=== PATIENT | male | born 1985 | race Hispanic/Latino ===

== ENCOUNTER 2021-04-18 00:09 | Inpatient (IN) | payer OTHER, SELFPAY ==
[~2021-04-18] VITALS: Ht 167.6 cm; Wt 105.4 kg
[2021-04-18] MEDS ORDERED: 0.9%NACL 1000ML 1,000 ML IV ONE (00:30)
[2021-04-18 00:39] LABS: ABG BASE EXCESS -4.7 mmol/L (-2.0-3.0); ABG HCO3 17.5 mmol/L (21.0-28.0); ABG OXYGEN SATURATION 94.4 % (95.0-99.0); ABG PCO2 26 mmHg (35-48)
[2021-04-18 00:46] LABS: BASOPHILS % (AUTO) 0.1 % (0.0-5.0); HEMATOCRIT 43.8 % (42-54); LYMPHOCYTES % (AUTO) 8.7 % (21.0-51.0); MEAN CORPUSCULAR HEMOGLOBIN 28.8 pg (27.0-33.0); MEAN CORPUSCULAR HGB CONC 34.5 g/dL (32.0-36.0); MEAN CORPUSCULAR VOLUME 83.4 fL (79-99); MONOCYTES % (AUTO) 4.5 % (3.0-13.0); PLATELET COUNT (AUTO) 250 K/uL (130-400); RED BLOOD CELL COUNT(AUTO) 5.25 MIL/uL (4.50-6.20); RED CELL DISTRIBUTION WIDTH 11.9 % (11.0-15.5); WHITE BLOOD COUNT (AUTO) 7.6 K/uL (4.8-10.8)
[2021-04-18 00:51] LABS: CREATININE 0.7 mg/dL (0.5-1.5); POTASSIUM 3.2 mmol/L (3.5-5.1)
[2021-04-18 00:56] LABS: ALBUMIN 2.9 g/dL (3.5-5.0); BILIRUBIN,TOTAL 0.5 mg/dL (0.2-1.0); TOTAL PROTEIN, SERUM 7.6 g/dL (6.0-8.3)
[2021-04-18] MEDS ORDERED: LORAZEPAM 2 MG/ML 1 ML VIAL ONE (01:48)
[2021-04-18] MEDS ORDERED: ONDANSETRON 4MG INJ ONE (01:52)
[2021-04-18] MEDS ORDERED: LORAZEPAM 2 MG/ML 1 ML VIAL IVP ONE (02:00)
[2021-04-18] MEDS ORDERED: DEXAMETHASONE SOD PHOSPHATE 4 MG/ML 1ML VIAL IVP ONE (02:30)
[2021-04-18] MEDS ORDERED: ENOXAPARIN SODIUM 40 MG/0.4 ML SYRINGE SQ ONE (02:30)
[2021-04-18] MEDS ORDERED: PHARMACY COMMUNICATION MISC SCH ×3 (03:00→16:00)
[2021-04-18] MEDS ORDERED: ONDANSETRON 4MG INJ IV PRN (03:00)
[2021-04-18] MEDS ORDERED: ERGOCALCIFEROL (VITAMIN D2) 50,000 UNIT CAPSULE PO ONE (03:00)
[2021-04-18] MEDS ORDERED: NITROGLYCERIN 0.4 MG SL TAB SL PRN (03:00)
[2021-04-18] MEDS ORDERED: ACETAMINOPHEN 325 MG TAB PO PRN ×2 (03:00)
[2021-04-18] MEDS ORDERED: DEXTROSE 50%-WATER 50 ML DISP.SYRIN IV PRN (03:00)
[2021-04-18] MEDS ORDERED: GLUCAGON 1MG KIT 1 MG ML IM PRN (03:00)
[2021-04-18] MEDS ORDERED: ALBUTEROL INHALER 90MCG/INH IH PRN (03:00)
[2021-04-18] MEDS: CEFTRIAXONE 1G VIAL IVP SCH (04:01)
[2021-04-18] MEDS: DEXAMETHASONE SOD PHOSPHATE 4 MG/ML 1ML VIAL IVP SCH (04:01)
[2021-04-18] MEDS: AZITHROMYCIN 500MG+NS 250ML 250 ML IV SCH (04:01)
[2021-04-18 06:19] LABS: INR 1.04 (0.85-1.15); PROTHROMBIN TIME 11.3 SEC (9.6-11.6)
[2021-04-18 06:20] LABS: PARTIAL THROMBOPLASTIN TIME 35.3 SEC (26.3-35.5)
[2021-04-18 06:29] LABS: HEMOGLOBIN A1C 10.7 % (4.0-6.0)
[2021-04-18 06:50] LABS: CRP QUANTITATIVE 200.6 mg/L (0.00-9.0)
[2021-04-18] MEDS: INSULIN HUMULIN R 100 UNIT/ML 3ML SQ SCH ×4 (08:11→22:19)
[2021-04-18] MEDS: ASCORBIC ACID 500 MG TAB PO SCH (09:00)
[2021-04-18] MEDS: FAMOTIDINE 20MG TAB PO SCH ×2 (09:00→22:18)
[2021-04-18] MEDS: ACETYLCYSTEINE 600 MG CAPSULE PO SCH ×2 (09:00→22:18)
[2021-04-18] MEDS ORDERED: ENOXAPARIN SODIUM 40 MG/0.4 ML SYRINGE SQ SCH ×2 (09:00)
[2021-04-18] MEDS: ZINC SULFATE 220 CAPSULE PO SCH (09:00)
[2021-04-18] MEDS ORDERED: DEXMEDETOMIDINE HCL 200 MCG in 0.9%NACL 50ML 50 ML IV PRN (13:00)
[2021-04-18] MEDS ORDERED: POTASSIUM CHLORIDE 10% ELIXIR 20 MEQ/15 ML UDCUP PO ONE (13:50)
[2021-04-18] MEDS ORDERED: INSULIN GLARGINE 100 UNITS/ML 10 ML VIAL SQ ONE (13:55)
[2021-04-18] MEDS: DEXMEDETOMIDINE 400MCG/NS100ML IV SCH (14:09)
[2021-04-18] MEDS ORDERED: REMDESIVIR (EUA) 520 200 MG in 0.9% NACL 250ML 250 ML IV ONE (16:00)
[2021-04-18] MEDS ORDERED: COMPOUND IV REFRIGERATED 1 EACH IVSOLN MISC PRN (16:00)
[2021-04-18] MEDS: BARICITINIB (EUA) 2 MG TABLET PO SCH (17:00)
[2021-04-18] MEDS: ENOXAPARIN SODIUM 40 MG/0.4 ML SYRINGE SQ SCH (22:19)
[2021-04-18] MEDS: INSULIN GLARGINE 100 UNITS/ML 10 ML VIAL SQ SCH (22:19)
[2021-04-19] MEDS ORDERED: 0.9%NACL 100ML 100 ML ONE (00:45)
[2021-04-19] MEDS ORDERED: DEXMEDETOMIDINE HCL 200 MCG/2 ML VIAL IV ONE (00:45)
[2021-04-19] MEDS: DEXAMETHASONE SOD PHOSPHATE 4 MG/ML 1ML VIAL IVP SCH (03:20)
[2021-04-19] MEDS: AZITHROMYCIN 500MG+NS 250ML 250 ML IV SCH (03:20)
[2021-04-19] MEDS: CEFTRIAXONE 1G VIAL IVP SCH (03:20)
[2021-04-19 05:18] LABS: BASOPHILS % (AUTO) 0.2 % (0.0-5.0); HEMATOCRIT 39.2 % (42-54); MEAN CORPUSCULAR HEMOGLOBIN 29.2 pg (27.0-33.0); MEAN CORPUSCULAR HGB CONC 34.7 g/dL (32.0-36.0); MEAN CORPUSCULAR VOLUME 84.3 fL (79-99); MONOCYTES % (AUTO) 3.8 % (3.0-13.0); NEUTROPHILS % (AUTO) 84.3 % (40.0-77.0); PLATELET COUNT (AUTO) 312 K/uL (130-400); RED BLOOD CELL COUNT(AUTO) 4.65 MIL/uL (4.50-6.20); RED CELL DISTRIBUTION WIDTH 12.2 % (11.0-15.5)
[2021-04-19 05:42] LABS: ALBUMIN 2.4 g/dL (3.5-5.0); BILIRUBIN,TOTAL 0.4 mg/dL (0.2-1.0); CREATININE 0.5 mg/dL (0.5-1.5); CRP QUANTITATIVE 159.9 mg/L (0.00-9.0); POTASSIUM 3.6 mmol/L (3.5-5.1); TOTAL PROTEIN, SERUM 6.9 g/dL (6.0-8.3)
[2021-04-19] MEDS: REMDESIVIR LABS MISC SCH (06:00)
[2021-04-19] MEDS: ASCORBIC ACID 500 MG TAB PO SCH (08:57)
[2021-04-19] MEDS: ZINC SULFATE 220 CAPSULE PO SCH (08:57)
[2021-04-19] MEDS: BARICITINIB (EUA) 2 MG TABLET PO SCH (08:57)
[2021-04-19] MEDS: FAMOTIDINE 20MG TAB PO SCH ×2 (08:57→21:59)
[2021-04-19] MEDS: ACETYLCYSTEINE 600 MG CAPSULE PO SCH ×2 (08:57→21:59)
[2021-04-19] MEDS: ENOXAPARIN SODIUM 40 MG/0.4 ML SYRINGE SQ SCH ×2 (08:58→21:59)
[2021-04-19] MEDS: INSULIN GLARGINE 100 UNITS/ML 10 ML VIAL SQ SCH ×2 (08:59→21:59)
[2021-04-19] MEDS: INSULIN HUMULIN R 100 UNIT/ML 3ML SQ SCH ×4 (08:59→21:59)
[2021-04-19 13:35] LABS: INR 1.02 (0.85-1.15); PROTHROMBIN TIME 11.1 SEC (9.6-11.6)
[2021-04-19 13:36] LABS: PARTIAL THROMBOPLASTIN TIME 29.9 SEC (26.3-35.5)
[2021-04-19] MEDS: REMDESIVIR (EUA) 520 100 MG in 0.9% NACL 250ML 250 ML IV SCH (16:42)
[2021-04-19] MEDS: SOLU-MEDROL 125MG VIAL IVP SCH ×2 (16:56→22:38)
[2021-04-19] MEDS ORDERED: FOLIC ACID 5 MG/ML VIAL IV ONE (19:00)
[2021-04-19] MEDS ORDERED: THIAMINE HCL 100 MG/ML 2ML VIAL IVP SCH (19:00)
[2021-04-20] VITALS (41 sets, daily range): BP systolic 95–131; BP diastolic 54–89
[2021-04-20] MEDS: AZITHROMYCIN 500MG+NS 250ML 250 ML IV SCH (03:00)
[2021-04-20] MEDS: CEFTRIAXONE 1G VIAL IVP SCH (03:00)
[2021-04-20 04:19] LABS: BASOPHILS % (AUTO) 0.1 % (0.0-5.0); HEMATOCRIT 42.2 % (42-54); MEAN CORPUSCULAR HEMOGLOBIN 28.1 pg (27.0-33.0); MEAN CORPUSCULAR HGB CONC 32.9 g/dL (32.0-36.0); MEAN CORPUSCULAR VOLUME 85.3 fL (79-99); MONOCYTES % (AUTO) 4.7 % (3.0-13.0); NEUTROPHILS % (AUTO) 81.6 % (40.0-77.0); PLATELET COUNT (AUTO) 335 K/uL (130-400); RED BLOOD CELL COUNT(AUTO) 4.95 MIL/uL (4.50-6.20); RED CELL DISTRIBUTION WIDTH 12.2 % (11.0-15.5); WHITE BLOOD COUNT (AUTO) 7.9 K/uL (4.8-10.8)
[2021-04-20 05:19] LABS: ALBUMIN 2.4 g/dL (3.5-5.0); BILIRUBIN,TOTAL 0.3 mg/dL (0.2-1.0); CREATININE 0.5 mg/dL (0.5-1.5); CRP QUANTITATIVE 80.8 mg/L (0.00-9.0); POTASSIUM 3.4 mmol/L (3.5-5.1); TOTAL PROTEIN, SERUM 6.7 g/dL (6.0-8.3)
[2021-04-20] MEDS: SOLU-MEDROL 125MG VIAL IVP SCH ×4 (06:00→20:50)
[2021-04-20] MEDS: REMDESIVIR LABS MISC SCH (06:00)
[2021-04-20] MEDS: INSULIN HUMULIN R 100 UNIT/ML 3ML SQ SCH ×5 (06:25→20:50)
[2021-04-20] MEDS: INSULIN GLARGINE 100 UNITS/ML 10 ML VIAL SQ SCH ×2 (06:39→20:48)
[2021-04-20] MEDS: DEXMEDETOMIDINE 400MCG/NS100ML IV SCH ×2 (06:40→16:36)
[2021-04-20 07:24] LABS: AMPHET/METH SCREEN,URINE NEGATIVE (NEGATIVE); BARBITURATE SCREEN, URINE NEGATIVE (NEGATIVE); BENZODIAZEPINES SCREEN,URINE NEGATIVE (NEGATIVE); CANNABINOID SCREEN,URINE NEGATIVE (NEGATIVE); COCAINE SCREEN,URINE NEGATIVE (NEGATIVE); OPIATE SCREEN,URINE NEGATIVE (NEGATIVE); PHENCYCLIDINE SCREEN,URINE NEGATIVE (NEGATIVE)
[2021-04-20] MEDS: THIAMINE HCL 100 MG/ML 2ML VIAL IVP SCH (07:55)
[2021-04-20] MEDS: ZINC SULFATE 220 CAPSULE PO SCH (07:55)
[2021-04-20] MEDS: FAMOTIDINE 20MG TAB PO SCH ×2 (07:55→20:47)
[2021-04-20] MEDS: ACETYLCYSTEINE 600 MG CAPSULE PO SCH ×2 (07:55→20:47)
[2021-04-20] MEDS: ASCORBIC ACID 500 MG TAB PO SCH (07:55)
[2021-04-20] MEDS: ENOXAPARIN SODIUM 40 MG/0.4 ML SYRINGE SQ SCH ×2 (07:56→20:50)
[2021-04-20] MEDS: FOLIC ACID 5 MG/ML VIAL IV SCH (08:38)
[2021-04-20] MEDS: BARICITINIB (EUA) 2 MG TABLET PO SCH (10:55)
[2021-04-20] MEDS ORDERED: ASPIRIN 81 MG EC TAB PO SCH (11:30)
[2021-04-20] MEDS: REMDESIVIR (EUA) 520 100 MG in 0.9% NACL 250ML 250 ML IV SCH (14:36)
[2021-04-20] MEDS: LACTULOSE 20 GM/30 ML UDCUP PO SCH ×2 (18:43→23:41)
[2021-04-21] VITALS (43 sets, daily range): BP systolic 102–156; BP diastolic 60–99
[2021-04-21] MEDS: CEFTRIAXONE 1G VIAL IVP SCH (03:45)
[2021-04-21] MEDS: AZITHROMYCIN 500MG+NS 250ML 250 ML IV SCH (03:45)
[2021-04-21] MEDS: SOLU-MEDROL 125MG VIAL IVP SCH ×2 (03:45→08:18)
[2021-04-21] MEDS: DEXMEDETOMIDINE 400MCG/NS100ML IV SCH ×3 (04:00→20:26)
[2021-04-21 04:52] LABS: BASOPHILS % (AUTO) 0.1 % (0.0-5.0); HEMATOCRIT 40.1 % (42-54); LYMPHOCYTES % (AUTO) 10.6 % (21.0-51.0); MEAN CORPUSCULAR HEMOGLOBIN 28.1 pg (27.0-33.0); MEAN CORPUSCULAR HGB CONC 33.2 g/dL (32.0-36.0); MEAN CORPUSCULAR VOLUME 84.8 fL (79-99); MONOCYTES % (AUTO) 5.1 % (3.0-13.0); NEUTROPHILS % (AUTO) 83.4 % (40.0-77.0); PLATELET COUNT (AUTO) 364 K/uL (130-400); RED BLOOD CELL COUNT(AUTO) 4.73 MIL/uL (4.50-6.20); RED CELL DISTRIBUTION WIDTH 11.9 % (11.0-15.5); WHITE BLOOD COUNT (AUTO) 9.4 K/uL (4.8-10.8)
[2021-04-21 05:00] LABS: ALBUMIN 2.4 g/dL (3.5-5.0); BILIRUBIN,TOTAL 0.4 mg/dL (0.2-1.0); CREATININE 0.6 mg/dL (0.5-1.5); CRP QUANTITATIVE 35.8 mg/L (0.00-9.0); TOTAL PROTEIN, SERUM 6.4 g/dL (6.0-8.3)
[2021-04-21 06:00] LABS: POTASSIUM 2.9 mmol/L (3.5-5.1)
[2021-04-21] MEDS: REMDESIVIR LABS MISC SCH (06:00)
[2021-04-21] MEDS: LACTULOSE 20 GM/30 ML UDCUP PO SCH ×2 (06:30→11:22)
[2021-04-21] MEDS: INSULIN HUMULIN R 100 UNIT/ML 3ML SQ SCH ×7 (06:39→20:27)
[2021-04-21] MEDS: INSULIN GLARGINE 100 UNITS/ML 10 ML VIAL SQ SCH ×2 (06:40→20:26)
[2021-04-21] MEDS: FAMOTIDINE 20MG TAB PO SCH ×2 (08:18→20:14)
[2021-04-21] MEDS: ZINC SULFATE 220 CAPSULE PO SCH (08:18)
[2021-04-21] MEDS: THIAMINE HCL 100 MG/ML 2ML VIAL IVP SCH (08:18)
[2021-04-21] MEDS: BARICITINIB (EUA) 2 MG TABLET PO SCH (08:18)
[2021-04-21] MEDS: ASCORBIC ACID 500 MG TAB PO SCH (08:18)
[2021-04-21] MEDS: ASPIRIN 81 MG EC TAB PO SCH (08:18)
[2021-04-21] MEDS: ENOXAPARIN SODIUM 40 MG/0.4 ML SYRINGE SQ SCH ×2 (08:18→20:14)
[2021-04-21] MEDS: ACETYLCYSTEINE 600 MG CAPSULE PO SCH ×2 (08:18→20:14)
[2021-04-21] MEDS: FOLIC ACID 5 MG/ML VIAL IV SCH (09:01)
[2021-04-21] MEDS ORDERED: POTASSIUM CHLORIDE 20MEQ/100ML 100 ML IV PRN (10:00)
[2021-04-21] MEDS ORDERED: POTASSIUM CHLORIDE 10% ELIXIR 20 MEQ/15 ML UDCUP PO PRN (10:00)
[2021-04-21] MEDS: KCL 20 MEQ ERTAB PO PRN ×3 (10:34→15:29)
[2021-04-21] MEDS: DEXAMETHASONE SOD PHOSPHATE 4 MG/ML 1ML VIAL IV SCH (13:53)
[2021-04-21] MEDS ORDERED: LACTULOSE 20 GM/30 ML UDCUP PO PRN (14:00)
[2021-04-21] MEDS: REMDESIVIR (EUA) 520 100 MG in 0.9% NACL 250ML 250 ML IV SCH (15:02)
[2021-04-22] VITALS (43 sets, daily range): BP systolic 94–138; BP diastolic 49–83
[2021-04-22] MEDS: AZITHROMYCIN 500MG+NS 250ML 250 ML IV SCH (03:13)
[2021-04-22] MEDS: CEFTRIAXONE 1G VIAL IVP SCH (03:13)
[2021-04-22] MEDS: DEXMEDETOMIDINE 400MCG/NS100ML IV SCH ×3 (03:30→21:18)
[2021-04-22 04:14] LABS: MEAN CORPUSCULAR HGB CONC 32.1 g/dL (32.0-36.0); MEAN CORPUSCULAR VOLUME 87.1 fL (79-99); RED BLOOD CELL COUNT(AUTO) 4.82 MIL/uL (4.50-6.20); RED CELL DISTRIBUTION WIDTH 11.9 % (11.0-15.5); WHITE BLOOD COUNT (AUTO) 10.4 K/uL (4.8-10.8)
[2021-04-22 04:26] LABS: CREATININE 0.6 mg/dL (0.5-1.5); POTASSIUM 3.2 mmol/L (3.5-5.1)
[2021-04-22] MEDS: KCL 20 MEQ ERTAB PO PRN ×3 (05:49→10:43)
[2021-04-22] MEDS: REMDESIVIR LABS MISC SCH (06:00)
[2021-04-22] MEDS: INSULIN GLARGINE 100 UNITS/ML 10 ML VIAL SQ SCH ×2 (06:51→20:59)
[2021-04-22] MEDS: INSULIN HUMULIN R 100 UNIT/ML 3ML SQ SCH ×8 (06:51→20:58)
[2021-04-22] MEDS: BARICITINIB (EUA) 2 MG TABLET PO SCH (08:34)
[2021-04-22] MEDS: FAMOTIDINE 20MG TAB PO SCH ×2 (08:34→20:55)
[2021-04-22] MEDS: THIAMINE HCL 100 MG/ML 2ML VIAL IVP SCH (08:34)
[2021-04-22] MEDS: ZINC SULFATE 220 CAPSULE PO SCH (08:34)
[2021-04-22] MEDS: ACETYLCYSTEINE 600 MG CAPSULE PO SCH ×2 (08:34→20:55)
[2021-04-22] MEDS: ASCORBIC ACID 500 MG TAB PO SCH (08:34)
[2021-04-22] MEDS: FOLIC ACID 5 MG/ML VIAL IV SCH (08:34)
[2021-04-22] MEDS: ENOXAPARIN SODIUM 40 MG/0.4 ML SYRINGE SQ SCH ×2 (08:35→20:56)
[2021-04-22] MEDS: ASPIRIN 81 MG EC TAB PO SCH (08:35)
[2021-04-22] MEDS: DEXAMETHASONE SOD PHOSPHATE 4 MG/ML 1ML VIAL IV SCH (12:15)
[2021-04-22] MEDS: REMDESIVIR (EUA) 520 100 MG in 0.9% NACL 250ML 250 ML IV SCH (15:31)
[2021-04-23] VITALS (28 sets, daily range): BP systolic 95–134; BP diastolic 49–101
[2021-04-23] MEDS: AZITHROMYCIN 500MG+NS 250ML 250 ML IV SCH (03:17)
[2021-04-23] MEDS: CEFTRIAXONE 1G VIAL IVP SCH (03:18)
[2021-04-23 03:50] LABS: HEMATOCRIT 40.1 % (42-54); MEAN CORPUSCULAR HEMOGLOBIN 27.8 pg (27.0-33.0); MEAN CORPUSCULAR HGB CONC 32.4 g/dL (32.0-36.0); MEAN CORPUSCULAR VOLUME 85.9 fL (79-99); RED BLOOD CELL COUNT(AUTO) 4.67 MIL/uL (4.50-6.20); RED CELL DISTRIBUTION WIDTH 11.8 % (11.0-15.5); WHITE BLOOD COUNT (AUTO) 11.5 K/uL (4.8-10.8)
[2021-04-23 03:58] LABS: CREATININE 0.8 mg/dL (0.5-1.5); POTASSIUM 3.2 mmol/L (3.5-5.1)
[2021-04-23] MEDS: INSULIN GLARGINE 100 UNITS/ML 10 ML VIAL SQ SCH (06:33)
[2021-04-23] MEDS: INSULIN HUMULIN R 100 UNIT/ML 3ML SQ SCH ×8 (06:34→20:34)
[2021-04-23] MEDS: ZINC SULFATE 220 CAPSULE PO SCH (08:40)
[2021-04-23] MEDS: ASCORBIC ACID 500 MG TAB PO SCH (08:40)
[2021-04-23] MEDS: FAMOTIDINE 20MG TAB PO SCH ×2 (08:40→20:29)
[2021-04-23] MEDS: ASPIRIN 81 MG EC TAB PO SCH (08:40)
[2021-04-23] MEDS: BARICITINIB (EUA) 2 MG TABLET PO SCH (08:40)
[2021-04-23] MEDS: ENOXAPARIN SODIUM 40 MG/0.4 ML SYRINGE SQ SCH ×2 (08:40→20:31)
[2021-04-23] MEDS: ACETYLCYSTEINE 600 MG CAPSULE PO SCH ×2 (08:40→20:29)
[2021-04-23] MEDS: KCL 20 MEQ ERTAB PO PRN ×3 (08:40→16:25)
[2021-04-23] MEDS: THIAMINE HCL 100 MG/ML 2ML VIAL IVP SCH (08:42)
[2021-04-23] MEDS: DEXAMETHASONE SOD PHOSPHATE 4 MG/ML 1ML VIAL IV SCH (12:26)
[2021-04-23] MEDS: FOLIC ACID 5 MG/ML VIAL IV SCH (12:52)
[2021-04-24] VITALS (28 sets, daily range): BP systolic 98–130; BP diastolic 45–83
[2021-04-24] MEDS: AZITHROMYCIN 500MG+NS 250ML 250 ML IV SCH (03:07)
[2021-04-24] MEDS: CEFTRIAXONE 1G VIAL IVP SCH (03:07)
[2021-04-24 04:17] LABS: HEMATOCRIT 38.9 % (42-54); MEAN CORPUSCULAR HEMOGLOBIN 28.4 pg (27.0-33.0); MEAN CORPUSCULAR HGB CONC 32.6 g/dL (32.0-36.0); RED BLOOD CELL COUNT(AUTO) 4.47 MIL/uL (4.50-6.20); RED CELL DISTRIBUTION WIDTH 11.7 % (11.0-15.5); WHITE BLOOD COUNT (AUTO) 9.2 K/uL (4.8-10.8)
[2021-04-24 04:22] LABS: CREATININE 0.6 mg/dL (0.5-1.5); POTASSIUM 3.3 mmol/L (3.5-5.1)
[2021-04-24] MEDS: INSULIN HUMULIN R 100 UNIT/ML 3ML SQ SCH ×6 (06:20→21:00)
[2021-04-24] MEDS: ENOXAPARIN SODIUM 40 MG/0.4 ML SYRINGE SQ SCH ×2 (08:26→20:31)
[2021-04-24] MEDS: THIAMINE HCL 100 MG/ML 2ML VIAL IVP SCH (08:26)
[2021-04-24] MEDS: ASCORBIC ACID 500 MG TAB PO SCH (08:26)
[2021-04-24] MEDS: FAMOTIDINE 20MG TAB PO SCH ×2 (08:27→20:31)
[2021-04-24] MEDS: ASPIRIN 81 MG EC TAB PO SCH (08:27)
[2021-04-24] MEDS: BARICITINIB (EUA) 2 MG TABLET PO SCH (08:27)
[2021-04-24] MEDS: ZINC SULFATE 220 CAPSULE PO SCH (08:27)
[2021-04-24] MEDS: FOLIC ACID 5 MG/ML VIAL IV SCH (08:28)
[2021-04-24] MEDS: INSULIN GLARGINE 100 UNITS/ML 10 ML VIAL SQ SCH (08:29)
[2021-04-24 09:53] LABS: CRP QUANTITATIVE 16.7 mg/L (0.00-9.0)
[2021-04-24] MEDS: DEXAMETHASONE SOD PHOSPHATE 4 MG/ML 1ML VIAL IV SCH (13:45)
[2021-04-25 03:22] VITALS: BP 104/67
[2021-04-25 04:40] LABS: HEMATOCRIT 40.9 % (42-54); MEAN CORPUSCULAR HEMOGLOBIN 28.7 pg (27.0-33.0); MEAN CORPUSCULAR HGB CONC 33.5 g/dL (32.0-36.0); MEAN CORPUSCULAR VOLUME 85.6 fL (79-99); RED BLOOD CELL COUNT(AUTO) 4.78 MIL/uL (4.50-6.20); RED CELL DISTRIBUTION WIDTH 11.6 % (11.0-15.5); WHITE BLOOD COUNT (AUTO) 9.7 K/uL (4.8-10.8)
[2021-04-25 04:48] LABS: CREATININE 0.7 mg/dL (0.5-1.5); POTASSIUM 3.6 mmol/L (3.5-5.1)
[2021-04-25] MEDS: CEFTRIAXONE 1G VIAL IVP SCH (05:42)
[2021-04-25] MEDS: AZITHROMYCIN 500MG+NS 250ML 250 ML IV SCH (05:42)
[2021-04-25 07:00] VITALS: BP 115/75
[2021-04-25] MEDS: INSULIN HUMULIN R 100 UNIT/ML 3ML SQ SCH ×8 (07:20→20:21)
[2021-04-25 08:39] LABS: CRP QUANTITATIVE 5.5 mg/L (0.00-9.0)
[2021-04-25] MEDS: ASCORBIC ACID 500 MG TAB PO SCH (09:34)
[2021-04-25] MEDS: FAMOTIDINE 20MG TAB PO SCH ×2 (09:34→20:19)
[2021-04-25] MEDS: ZINC SULFATE 220 CAPSULE PO SCH (09:34)
[2021-04-25] MEDS: ASPIRIN 81 MG EC TAB PO SCH (09:34)
[2021-04-25] MEDS: THIAMINE HCL 100 MG/ML 2ML VIAL IVP SCH (09:35)
[2021-04-25] MEDS: BARICITINIB (EUA) 2 MG TABLET PO SCH (09:35)
[2021-04-25] MEDS: FOLIC ACID 5 MG/ML VIAL IV SCH (09:35)
[2021-04-25] MEDS: ENOXAPARIN SODIUM 40 MG/0.4 ML SYRINGE SQ SCH ×2 (09:36→20:19)
[2021-04-25] MEDS: INSULIN GLARGINE 100 UNITS/ML 10 ML VIAL SQ SCH (09:37)
[2021-04-25 11:00] VITALS: BP 99/62
[2021-04-25 16:00] VITALS: BP 108/62
[2021-04-25] MEDS: DEXAMETHASONE SOD PHOSPHATE 4 MG/ML 1ML VIAL IV SCH (17:56)
[2021-04-25 19:59] VITALS: BP 100/65
[2021-04-25 23:54] VITALS: BP 97/67
[2021-04-26] VITALS (7 sets, daily range): BP systolic 94–105; BP diastolic 50–69
[2021-04-26 03:50] LABS: BASOPHILS % (AUTO) 0.3 % (0.0-5.0); EOSINOPHILS % (AUTO) 0.6 % (0.0-8.0); HEMATOCRIT 40.5 % (42-54); LYMPHOCYTES % (AUTO) 11.7 % (21.0-51.0); MEAN CORPUSCULAR HEMOGLOBIN 28.5 pg (27.0-33.0); MEAN CORPUSCULAR HGB CONC 33.1 g/dL (32.0-36.0); MEAN CORPUSCULAR VOLUME 86.2 fL (79-99); MONOCYTES % (AUTO) 5.6 % (3.0-13.0); NEUTROPHILS % (AUTO) 78.9 % (40.0-77.0); PLATELET COUNT (AUTO) 451 K/uL (130-400); RED CELL DISTRIBUTION WIDTH 11.7 % (11.0-15.5)
[2021-04-26 04:06] LABS: ALBUMIN 2.6 g/dL (3.5-5.0); BILIRUBIN,TOTAL 0.5 mg/dL (0.2-1.0); CREATININE 0.6 mg/dL (0.5-1.5); POTASSIUM 3.8 mmol/L (3.5-5.1); TOTAL PROTEIN, SERUM 5.9 g/dL (6.0-8.3)
[2021-04-26] MEDS: INSULIN HUMULIN R 100 UNIT/ML 3ML SQ SCH ×7 (07:30→20:59)
[2021-04-26] MEDS: ASPIRIN 81 MG EC TAB PO SCH (08:24)
[2021-04-26] MEDS: FAMOTIDINE 20MG TAB PO SCH ×2 (08:24→20:56)
[2021-04-26] MEDS: ZINC SULFATE 220 CAPSULE PO SCH (08:24)
[2021-04-26] MEDS: THIAMINE HCL 100 MG/ML 2ML VIAL IVP SCH (08:25)
[2021-04-26] MEDS: ENOXAPARIN SODIUM 40 MG/0.4 ML SYRINGE SQ SCH ×2 (08:25→21:07)
[2021-04-26] MEDS: ASCORBIC ACID 500 MG TAB PO SCH (08:25)
[2021-04-26] MEDS: FOLIC ACID 5 MG/ML VIAL IV SCH (08:26)
[2021-04-26] MEDS: BARICITINIB (EUA) 2 MG TABLET PO SCH (08:26)
[2021-04-26] MEDS: INSULIN GLARGINE 100 UNITS/ML 10 ML VIAL SQ SCH (08:29)
[2021-04-26] MEDS ORDERED: PHARMACY COMMUNICATION MISC SCH (08:30)
[2021-04-26] MEDS: DEXAMETHASONE SOD PHOSPHATE 4 MG/ML 1ML VIAL IV SCH (12:39)
[2021-04-27 03:10] VITALS: BP 100/56
[2021-04-27 06:52] LABS: BASOPHILS % (AUTO) 0.2 % (0.0-5.0); EOSINOPHILS % (AUTO) 0.2 % (0.0-8.0); HEMATOCRIT 41.1 % (42-54); LYMPHOCYTES % (AUTO) 12.3 % (21.0-51.0); MEAN CORPUSCULAR HGB CONC 33.3 g/dL (32.0-36.0); MEAN CORPUSCULAR VOLUME 87.1 fL (79-99); MONOCYTES % (AUTO) 6.7 % (3.0-13.0); NEUTROPHILS % (AUTO) 77.8 % (40.0-77.0); PLATELET COUNT (AUTO) 439 K/uL (130-400); RED BLOOD CELL COUNT(AUTO) 4.72 MIL/uL (4.50-6.20); RED CELL DISTRIBUTION WIDTH 11.9 % (11.0-15.5); WHITE BLOOD COUNT (AUTO) 9.7 K/uL (4.8-10.8)
[2021-04-27] MEDS: INSULIN HUMULIN R 100 UNIT/ML 3ML SQ SCH ×4 (07:30→11:49)
[2021-04-27 07:42] LABS: CARBON DIOXIDE 30 mmol/L (21-32); CHLORIDE 104 mmol/L (101-111); CREATININE 0.6 mg/dL (0.5-1.5); GLOMERULAR FILTR. RATE CALC 160 mL/min (>60); GLUCOSE,RANDOM 154 mg/dL (70-105); POTASSIUM 3.7 mmol/L (3.5-5.1); SODIUM SERUM 140 mmol/L (136-145); UREA NITROGEN, BLOOD 12 mg/dL (7-18)
[2021-04-27 08:24] LABS: CRP QUANTITATIVE < 2.00 mg/L (0.00-9.0)
[2021-04-27 08:36] VITALS: BP 110/78
[2021-04-27] MEDS ORDERED: METF-446 PO (08:41)
[2021-04-27] MEDS ORDERED: DEXA6TAB PO (08:41)
[2021-04-27] MEDS ORDERED: INSLAN SQ (08:50)
[2021-04-27] MEDS ORDERED: SYRI-1554 MC (08:50)
[2021-04-27] MEDS: FOLIC ACID 5 MG/ML VIAL IV SCH (08:53)
[2021-04-27] MEDS: ASPIRIN 81 MG EC TAB PO SCH (08:53)
[2021-04-27] MEDS: THIAMINE HCL 100 MG/ML 2ML VIAL IVP SCH (08:53)
[2021-04-27] MEDS: BARICITINIB (EUA) 2 MG TABLET PO SCH (08:53)
[2021-04-27] MEDS: ZINC SULFATE 220 CAPSULE PO SCH (08:53)
[2021-04-27] MEDS: ASCORBIC ACID 500 MG TAB PO SCH (08:54)
[2021-04-27] MEDS: ENOXAPARIN SODIUM 40 MG/0.4 ML SYRINGE SQ SCH (08:54)
[2021-04-27] MEDS: FAMOTIDINE 20MG TAB PO SCH (08:54)
[2021-04-27] MEDS: INSULIN GLARGINE 100 UNITS/ML 10 ML VIAL SQ SCH (08:56)
[2021-04-27] MEDS: DEXAMETHASONE SOD PHOSPHATE 4 MG/ML 1ML VIAL IV SCH (11:49)
[2021-04-27 12:12] VITALS: BP 111/74
== END 2021-04-27 13:28 | disposition home or self-care (01) | DRG 177 ==
LOC: EDH 00:09 → EDHIP 02:40 → 2BH 04-19 23:25 → 2AH 04-24 19:39
PROVIDERS: ADMIT Hospitalist; ATTEND Hospitalist
PROC: XW033E5 Introduction of Remdesivir Anti-infective into Peripheral Vein, Percutaneous Approach, New Technology Group 5 (ICD-10-PCS; principal; 2021-04-18)
PROC: XW0DXM6 Introduction of Baricitinib into Mouth and Pharynx, External Approach, New Technology Group 6 (ICD-10-PCS; 2021-04-18)
PROC: 5A0955A Assistance with Respiratory Ventilation, Greater than 96 Consecutive Hours, High Flow/Velocity Cannula (ICD-10-PCS; 2021-04-18)
DX: U07.1 COVID-19 (principal); A41.89 Other specified sepsis; J12.82 Pneumonia due to coronavirus disease 2019; E43 Unspecified severe protein-calorie malnutrition; J80 Acute respiratory distress syndrome; D68.69 Other thrombophilia; E87.6 Hypokalemia; E11.65 Type 2 diabetes mellitus with hyperglycemia; E66.01 Morbid (severe) obesity due to excess calories; E78.5 Hyperlipidemia, unspecified; E88.09 Other disorders of plasma-protein metabolism, not elsewhere classified; F41.9 Anxiety disorder, unspecified; F14.10 Cocaine abuse, uncomplicated; F10.10 Alcohol abuse, uncomplicated; T38.0X5A Adverse effect of glucocorticoids and synthetic analogues, initial encounter; G47.33 Obstructive sleep apnea (adult) (pediatric); I10 Essential (primary) hypertension; Z68.39 Body mass index [BMI] 39.0-39.9, adult; Z79.4 Long term (current) use of insulin; Z91.19 Patient's noncompliance with other medical treatment and regimen; Z82.49 Family history of ischemic heart disease and other diseases of the circulatory system; Z83.3 Family history of diabetes mellitus; Y92.89 Other specified places as the place of occurrence of the external cause
CPT/HCPCS: 36415; 36600; 71045; 71250; 80048; 80053; 80305; 82550; 82728; 82803; 82948; 83036; 83605; 83615; 83735; 83874; 84132; 84145; 84484; 85025; 85027; 85378; 85610; 85730; 86140; 87040; 87426; 87486; 87581; 87633; 87798; 93005; 93971; 94760; 99291; G0378; J0456; J0696; J1100; J1650; J1815; J2060; J2405; J2930; J3411; J3480; J3490; J7050